=== PATIENT | female | born 1970 | race American Indian/Alaskan Native ===

== ENCOUNTER 2021-10-16 10:20 | Emergency (ER) | payer SELFPAY ==
[2021-10-16 11:13] VITALS: BP 156/83
--- NOTE | 2021-10-16 11:46 | XRay Report ---
CHEST 2 VIEWS INDICATION / CLINICAL INFORMATION: Chest Pain. COMPARISON: None available. FINDINGS: SUPPORT DEVICES: None. HEART / MEDIASTINUM: Heart size is upper limits of normal. This is grossly stable compared to prior e xam. LUNGS / PLEURA: No significant pulmonary or pleural abnormality. No pneumothorax. ADDITIONAL FINDINGS: No significant additional findings. IMPRESSION: 1. No acute findings. Signer Name: Shiv Jhaveri MD Signed: 10/16/2021 11:41 AM Workstation Name: [email or web address]
[2021-10-16] MEDS ORDERED: ALBUTEROL 2.5 MG/3 ML NEBU IH ONE (12:35)
[2021-10-16] MEDS ORDERED: predniSONE 20 MG TAB PO ONE (12:36)
[2021-10-16 12:46] LABS: Alanine Aminotransferase 8 units/L (7-56); Albumin 4.2 g/dL (3.9-5); BUN/Creatinine Ratio 14; Blood Urea Nitrogen 7 mg/dL (7-17); Hemolysis Index 6
[2021-10-16 12:51] LABS: Hematocrit 28.7 % (30.3-42.9); Mean Corpuscular Volume 56 fl (79-97); Red Blood Count 5.15 M/mm3 (3.65-5.03)
[2021-10-16 12:52] LABS: Lymphocytes % (Auto) 15.3 % (13.4-35.0); Mean Corpuscular HGB Conc 28 % (30-34); Monocytes % (Auto) 6.4 % (0.0-7.3); Platelet Count 436 K/mm3 (140-440); Red Cell Distribution Width 24.8 % (13.2-15.2)
[2021-10-16 12:53] LABS: Basophils # (Auto) 0.1 K/mm3 (0.0-0.1); Basophils % (Auto) 0.5 % (0.0-1.8); Eosinophils # (Auto) 0.2 K/mm3 (0.0-0.4); Lymphocytes # (Auto) 1.9 K/mm3 (1.2-5.4); Monocytes # (Auto) 0.8 K/mm3 (0.0-0.8)
--- NOTE | 2021-10-16 12:53 | Emergency Department Report ---
Minor Respiratory - HPI Chief Complaint: Chest Pain Stated Complaint: CHEST PAIN/HEADACHE/CONGESTION Time Seen by Provider: 10/16/21 11:12 Duration: 3 Days Pain Location: Chest Severity: mild Minor Respiratory: Yes Able to Tolerate Fluids, Yes Cough, Yes Sick Contacts, Y es Chest Pain, No Rhinorrhea, No Sore Throat, No Ear Pain, No Hemoptysis, No Shortness of Breath, No Fever Other History: Patient is a 51-year-old female that comes to the emergency room complaining of chest pain that occurs when she coughs. 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 Patient does have a history of asthma. She is on no medications for her asthma due to finances. She also has a history of hypertension, she is off her blood pressure medicines again due to finances. Patient endorses that the pain is only when she coughs. She notes that she has been wheezing. She has no fever or chills. No sputum. No shortness of breath. Patient is immunized for COVID ED Review of Systems ROS: Stated complaint: CHEST PAIN/HEADACHE/CONGESTION Other details as noted in HPI Comment: All other systems reviewed and negative ED Past Medical Hx - Past Medical History Previous Medical History?: Yes Hx Hypertension: Yes Hx Asthma: Yes Additional medical history: Anemia - Surgical History Past Surgical History?: Yes Additional Surgical History: T & A - Family History Family history: no significant - Social History Smoking Status: Never Smoker Substance Use Type: Alcohol - Medications Home Medications: Home Medications Medication Instructions Recorded Confirmed Last Taken Type Amlodipine Besylate [Norvasc] 2.5 mg PO DAILY #30 tab 08/19/16 Unknown Rx Albuterol Mdi (or & Nicu Only) 2 puff IH QID PRN #1 inhalation 10/16/21 Unknown Rx [ProAir HFA Inhaler] Albuterol Sulfate [Albuterol 0.63% 0.63 mg IH TID PRN #30 ml 10/16/21 Unknown Rx NEBS] Albuterol Sulfate [Proair 90 mcg IH QID PRN #1 aer.pow.ba 10/16/21 Unknown Rx Respiclick] Amoxicillin [Trimox CAP] 500 mg PO BID #20 capsule 10/16/21 Unknown Rx Cetirizine HCl [ZyrTEC] 10 mg PO DAILY #30 capsule 10/16/21 Unknown Rx Docusate Sodium [Colace] 100 mg PO BID #60 capsule 10/16/21 Unknown Rx Ferrous Sulfate [Iron 325 MG] 325 mg PO DAILY #30 10/16/21 Unknown Rx Fluticasone [Flonase] 1 spray NS QDAY #1 bottle 10/16/21 Unknown Rx lisinopriL [Zestril TAB] 10 mg PO QDAY #30 tablet 10/16/21 Unknown Rx methylPREDNISolone [Medrol 4MG 4 mg PO FS #1 tab.ds.pk 10/16/21 Unknown Rx DOSEPAK (21 tabs)] Minor Respiratory Exam - Exam General: Vital signs noted. No distress. Alert and acting appropriately. HEENT: Yes Moist Mucous Membranes, Yes Frontal Tenderness, Yes Maxillary Te nderness, No Pharyngeal Erythema, No Pharyngeal Exudates, No Rhinorrhea, No Conjuctival Injection Ear: Neither TM Bulge, Neither TM Erythema, Neither EAC Pain, Neither EAC Dis charge Neck: Yes Supple, No Adenopathy Lungs: Yes Good Air Exchange, No Wheezes, No Ronchi, No Stridor, No Cough, No Labored Respirations, No Retractions, No Use of Accessory Muscles, No Other Abnormal Lung Sounds Heart: Yes Regular, No Murmur Abdomen: Yes Normal Bowel Sounds, No Tenderness, No Peritoneal Signs Skin: No Rash, No Edema Neurologic: Alert and oriented, no deficits. Musculoskeletal: Unremarkable. ED Course Vital Signs 10/16/21 11:12 Temperature 97.9 F Pulse Rate 83 Respiratory 18 Rate Blood Pressure 156/83 [Right] O2 Sat by Pulse 97 Oximetry ED Medical Decision Making - Lab Data Result diagrams: 10/16/21 11:49 10/16/21 11:49 - EKG Data -: EKG Interpreted by Pa EKG shows normal: sinus rhythm Rate: normal - EKG Data When compared to previous EKG there are: no significant change Interpretation: no acute changes - Radiology Data Radiology results: report reviewed, image reviewed No acute process - Medical Decision Making Lab Results 10/16/21 10/16/21 Range/Units 11:49 11:49 WBC 12.4 H (4.5-11.0) K/mm3 RBC 5.15 H (3.65-5.03) M/mm3 Hgb 8.0 L (10.1-14.3) gm/dl Hct 28.7 L (30.3-42.9) % MCV 56 L (79-97) fl MCH 16 L (28-32) pg MCHC 28 L (30-34) % RDW 24.8 H (13.2-15.2) % Plt Count 436 (140-440) K/mm3 Lymph % (Auto) 15.3 (13.4-35.0) % [place] % (Auto) 6.4 (0.0-7.3) % Eos % (Auto) 1.7 (0.0-4.3) % Baso % (Auto) 0.5 (0.0-1.8) % Lymph # (Auto) 1.9 (1.2-5.4) K/mm3 [place] # (Auto) 0.8 (0.0-0.8) K/mm3 Eos # (Auto) 0.2 (0.0-0.4) K/mm3 Baso # (Auto) 0.1 (0.0-0.1) K/mm3 Seg Neutrophils % 76.1 H (40.0-70.0) % Seg Neutrophils # 9.5 H (1.8-7.7) K/mm3 Sodium 139 (137-145) mmol/L Potassium 4.1 (3.6-5.0) mmol/L Chloride 103.7 (98-107) mmol/L Carbon Dioxide 22 (22-30) mmol/L Anion Gap 17 mmol/L BUN 7 (7-17) mg/dL Creatinine 0.5 L (0.6-1.2) mg/dL Estimated GFR > 60 ml/min BUN/Creatinine Ratio 14 % Glucose 111 H (65-100) mg/dL Calcium 9.0 (8.4-10.2) mg/dL Total Bilirubin 0.50 (0.1-1.2) mg/dL AST 15 (5-40) units/L ALT 8 (7-56) units/L Alkaline Phosphatase 74 (35-129) units/L Troponin T < 0.010 (0.00-0.029) ng/mL Total Protein 7.9 (6.3-8.2) g/dL Albumin 4.2 (3.9-5) g/dL Albumin/Globulin Ratio 1.1 % Vital Signs 10/16/21 11:12 Temperature 97.9 F Pulse Rate 83 Respiratory 18 Rate Blood Pressure 156/83 [Right] O2 Sat by Pulse 97 Oximetry Patient given an albuterol nebulizer in the ER. Dosed with prednisone. Patient does endorse sinus pressure and yellow sinus drainage. She has no fever or chills. No sputum. White count was normal. I have encouraged the patient to give this more time, however she states every time that she does not address her sinuses probably she gets of severe sinus infection. I have given her amoxicillin. Have given her a refill for her blood pressure medicines. I have given patient a prescription for iron and Colace. She has acute on chronic anemia. I have given patient referral to PCP. I have asked her to follow-up. Patient is ambulatory, not ill nontoxic on exam in ER. Of had a long discussion with the patient regarding her lab findings. I have explained to her how they interrelate. I have given her referral to primary care. Patient being discharged home with discharge plan of care including diet, medications, activity and follow-up. She verbalizes understanding. - Differential Diagnosis URI, asthma acute exacerbation Critical care attestation.: If time is entered above; I have spent that time in minutes in the direct care of this critically ill patient, excluding procedure time. ED Disposition Clinical Impression: History of hypertension, Nonadherence to medication, Acute on chronic anemia Asthma exacerbation Qualifiers: Asthma severity: mild Asthma persistence: intermittent Qualified Code(s): J45.21 - Mild intermittent asthma with (acute) exacerbation Sinusitis Qualifiers: Sinusitis location: frontal Chronicity: acute Recurrence: recurrent Qualified Code(s): J01.11 - Acute recurrent frontal sinusitis Disposition: HOME / SELF CARE / HOMELESS Is pt being admited?: No Does the pt Need Aspirin: No Condition: Stable Instructions: Asthma, Adult Additional Instructions: Medications as ordered today Follow-up with PCP on Monday to make sure you are getting better I have given you referral below. He will see you since you have been seen in the ER. Odcq-fop-[id number] Motrin or Tylenol for pain or fever Zebg-wlk-xewtchf cough medicines, that can safely be taken with hypertension, for coughing Diet and activity as tolerated Stay well-hydrated with water Prescriptions: Albuterol Sulfate [Albuterol 0.63% NEBS] 0.63 mg IH TID PRN #30 ml PRN Reason: Wheezing Docusate Sodium [Colace] 100 mg PO BID #60 capsule Fluticasone [Flonase] 1 spray NS QDAY #1 bottle Ferrous Sulfate [Iron 325 MG] 325 mg PO DAILY #30 methylPREDNISolone [Medrol 4MG DOSEPAK (21 tabs)] 4 mg PO FS #1 tab.ds.pk Albuterol Mdi (or & Nicu Only) [ProAir HFA Inhaler] 2 puff IH QID PRN #1 inhalation PRN Reason: Shortness Of Breath Albuterol Sulfate [Proair Respiclick] 90 mcg IH QID PRN #1 aer.pow.ba PRN Reason: Wheezing Amoxicillin [Trimox CAP] 500 mg PO BID #20 capsule lisinopriL [Zestril TAB] 10 mg PO QDAY #30 tablet Cetirizine HCl [ZyrTEC] 10 mg PO DAILY #30 capsule Referrals: PRIMARY CAREMD [Primary Care Provider] - 3-5 Days LYNETTE SYKES MD [Staff Physician] - 3-5 Days Time of Disposition: 12:53
[2021-10-16 12:54] LABS: Eosinophils % (Auto) 1.7 % (0.0-4.3)
--- NOTE | 2021-10-18 13:29 | Electrocardiograph Report ---
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
== END 2021-10-16 14:16 | disposition home or self-care (01) ==
LOC: ED 10:20
DX: J45.901 Unspecified asthma with (acute) exacerbation (principal); D64.9 Anemia, unspecified; G89.29 Other chronic pain; J01.11 Acute recurrent frontal sinusitis; Z72.89 Other problems related to lifestyle; Z91.14 Patient's other noncompliance with medication regimen; Z88.2 Allergy status to sulfonamides; Z88.8 Allergy status to other drugs, medicaments and biological substances
CPT/HCPCS: 36415; 71046; 80053; 84484; 85025; 93005; 94640; 99284

== ENCOUNTER 2021-10-27 11:36 | Emergency (ER) | payer SELFPAY ==
[2021-10-27] MEDS ORDERED: cloNIDine 0.1 MG TAB PO ONE (16:06)
--- NOTE | 2021-10-27 16:09 | Emergency Department Report ---
ED General Adult HPI - General Chief complaint: Upper Respiratory Infection Stated complaint: SINUS/RIB HURT W/COUGHING/HEADACHE Time Seen by Provider: 10/27/21 15:54 Source: patient Mode of arrival: Ambulatory Limitations: No Limitations - History of Present Illness Initial comments: Patient is 52 years old female with history of hypertension and recurrent sinusitis. Patient presented to the ER complaining of right maxillary and ethmoid sinus pressure with drainage for the last few weeks. Patient also found to have a blood pressure of 200/110. Patient stated that she is taking lisinopril but she is out of her Norvasc. She denied any headache, focal weakness numbness or tingling sensation. Severity scale (0 -10): 0 - Related Data Previous Rx's Medication Instructions Recorded Last Taken Type Amlodipine Besylate [Norvasc] 2.5 mg PO DAILY #30 tab 08/19/16 Unknown Rx Albuterol Mdi (or & Nicu Only) 2 puff IH QID PRN #1 inhalation 10/16/21 Unknown Rx [ProAir HFA Inhaler] Albuterol Sulfate [Albuterol 0.63% 0.63 mg IH TID PRN #30 ml 10/16/21 Unknown Rx NEBS] Albuterol Sulfate [Proair 90 mcg IH QID PRN #1 aer.pow.ba 10/16/21 Unknown Rx Respiclick] Amoxicillin [Trimox CAP] 500 mg PO BID #20 capsule 10/16/21 Unknown Rx Cetirizine HCl [ZyrTEC] 10 mg PO DAILY #30 capsule 10/16/21 Unknown Rx Docusate Sodium [Colace] 100 mg PO BID #60 capsule 10/16/21 Unknown Rx Ferrous Sulfate [Iron 325 MG] 325 mg PO DAILY #30 10/16/21 Unknown Rx Fluticasone [Flonase] 1 spray NS QDAY #1 bottle 10/16/21 Unknown Rx lisinopriL [Zestril TAB] 10 mg PO QDAY #30 tablet 10/16/21 Unknown Rx methylPREDNISolone [Medrol 4MG 4 mg PO FS #1 tab.ds.pk 10/16/21 Unknown Rx DOSEPAK (21 tabs)] Allergies Allergy/AdvReac Type Severity Reaction Status Date / Time sulfamethoxazole Allergy Rash Verified 10/27/21 13:00 [From Bactrim] trimethoprim [From Bactrim] Allergy Rash Verified 10/27/21 13:00 ED Review of Systems ROS: Stated complaint: SINUS/RIB HURT W/COUGHING/HEADACHE Other details as noted in HPI Comment: All other systems reviewed and negative Constitutional: denies: chills, fever ENT: congestion Respiratory: cough, shortness of breath. denies: SOB with exertion Gastrointestinal: denies: abdominal pain, nausea, vomiting Musculoskeletal: denies: back pain Neurological: denies: headache, weakness, numbness, paresthesias, confusion, abnormal gait ED Past Medical Hx - Past Medical History Hx Hypertension: Yes Hx Asthma: Yes Additional medical history: Anemia - Surgical History Additional Surgical History: T & A - Social History Smoking Status: Never Smoker Substance Use Type: Alcohol - Medications Home Medications: Home Medications Medication Instructions Recorded Confirmed Last Taken Type Amlodipine Besylate [Norvasc] 2.5 mg PO DAILY #30 tab 08/19/16 Unknown Rx Albuterol Mdi (or & Nicu Only) 2 puff IH QID PRN #1 inhalation 10/16/21 Unknown Rx [ProAir HFA Inhaler] Albuterol Sulfate [Albuterol 0.63% 0.63 mg IH TID PRN #30 ml 10/16/21 Unknown Rx NEBS] Albuterol Sulfate [Proair 90 mcg IH QID PRN #1 aer.pow.ba 10/16/21 Unknown Rx Respiclick] Amoxicillin [Trimox CAP] 500 mg PO BID #20 capsule 10/16/21 Unknown Rx Cetirizine HCl [ZyrTEC] 10 mg PO DAILY #30 capsule 10/16/21 Unknown Rx Docusate Sodium [Colace] 100 mg PO BID #60 capsule 10/16/21 Unknown Rx Ferrous Sulfate [Iron 325 MG] 325 mg PO DAILY #30 10/16/21 Unknown Rx Fluticasone [Flonase] 1 spray NS QDAY #1 bottle 10/16/21 Unknown Rx lisinopriL [Zestril TAB] 10 mg PO QDAY #30 tablet 10/16/21 Unknown Rx methylPREDNISolone [Medrol 4MG 4 mg PO FS #1 tab.ds.pk 10/16/21 Unknown Rx DOSEPAK (21 tabs)] ED Physical Exam - General Limitations: No Limitations General appearance: alert, in no apparent distress - Head Head exam: Present: atraumatic, normocephalic, normal inspection - Eye Eye exam: Present: normal appearance - ENT ENT exam: Present: normal exam, normal orophraynx, mucous membranes moist - Neck Neck exam: Present: normal inspection, full ROM. Absent: tenderness, meningismus - Respiratory Respiratory exam: Present: normal lung sounds bilaterally - Cardiovascular Cardiovascular Exam: Present: regular rate, normal rhythm, normal heart sounds - GI/Abdominal GI/Abdominal exam: Present: soft, normal bowel sounds. Absent: distended, tenderness, guarding, rebound, rigid, organomegaly, mass, bruit, pulsatile mass, hernia - Extremities Exam Extremities exam: Present: normal inspection, full ROM, normal capillary refill. Absent: tenderness, pedal edema, joint swelling, calf tenderness - Back Exam Back exam: Present: normal inspection, full ROM. Absent: CVA tenderness (R), CVA tenderness (L) - Neurological Exam Neurological exam: Present: alert, oriented X3, CN II-XII intact, normal gait, reflexes normal. Absent: motor sensory deficit - Psychiatric Psychiatric exam: Present: normal mood - Skin Skin exam: Present: warm, intact, normal color ED Course Vital Signs 10/27/21 10/27/21 12:58 16:20 Temperature 98.3 F Pulse Rate 96 H 90 Respiratory 18 18 Rate Blood Pressure 200/111 145/87 [Left] O2 Sat by Pulse 100 100 Oximetry ED Medical Decision Making - Lab Data Result diagrams: 10/27/21 16:57 10/27/21 16:57 - Radiology Data Radiology results: report reviewed - Medical Decision Making Patient is 52 years old female with history of hypertension and recurrent sinusitis. Patient presented to the ER complaining of right maxillary and ethmoid sinus pressure with drainage for the last few weeks. Patient also found to have a blood pressure of 200/110. Patient stated that she is taking lisino pril but she is out of her Norvasc. She denied any headache, focal weakness numbness or tingling sensation. Patient remained stable in the ER and her blood pressure went down to 145/72 with no medication. Labs reviewed and is unremarkable except for leukocytosis most likely from recent prednisone use and sinusitis. Patient treated with amoxicillin with no significant improvement. I will start patient on erythromycin. I will refill her Norvasc and strongly advised the patient to follow-up with her primary care physician for further management and also to return to the ER if she develop any new symptoms. Critical care attestation.: If time is entered above; I have spent that time in minutes in the direct care of this critically ill patient, excluding procedure time. ED Disposition Clinical Impression: Malignant hypertension, Acute sinusitis Disposition: 01 HOME / SELF CARE / HOMELESS Is pt being admited?: No Condition: Stable Instructions: Hypertension (ED), Sinusitis, Adult, [id number], Hypertension, Adult Referrals: LYNETTE SYKES MD [Primary Care Provider] - 3-5 Days
--- NOTE | 2021-10-27 16:42 | XRay Report ---
CHEST 2 VIEWS INDICATION / CLINICAL INFORMATION: cough/chest pain. COMPARISON: 2 views of the chest from 10/16/2021. FINDINGS: SUPPORT DEVICES: None. HEART / MEDIASTINUM: Stable. LUNGS / PLEURA: No significant pulmonary abnormality. No significant pleural effusion. No pneumothora x. ADDITIONAL FINDINGS: The bones are unchanged. IMPRESSION: 1. No acute abnormality of the chest. Signer Name: Ron Little MD Signed: 10/27/2021 4:38 PM Workstation Name: [id number]
[2021-10-27 17:49] LABS: Mean Corpuscular HGB Conc 28 % (30-34); Platelet Count 451 K/mm3 (140-440); Red Blood Count 5.55 M/mm3 (3.65-5.03)
[2021-10-27 17:50] LABS: Hematocrit 32.1 % (30.3-42.9); Hemoglobin 9.1 gm/dl (10.1-14.3); Mean Corpuscular Volume 58 fl (79-97); Red Cell Distribution Width 27.5 % (13.2-15.2)
[2021-10-27 17:53] LABS: Blood Urea Nitrogen 8 mg/dL (7-17); Calcium 9.1 mg/dL (8.4-10.2); Hemolysis Index 1
[2021-10-27 17:54] LABS: BUN/Creatinine Ratio 16
[2021-10-27 18:56] VITALS: BP 124/78
[2021-10-27 19:06] LABS: Anisocytosis 2+; Hypochromasia 2+; Total Cells Counted 100
== END 2021-10-27 18:55 | disposition home or self-care (01) ==
LOC: ED 11:36
DX: I10 Essential (primary) hypertension (principal); J01.90 Acute sinusitis, unspecified; J45.909 Unspecified asthma, uncomplicated; Z72.89 Other problems related to lifestyle; Z88.2 Allergy status to sulfonamides; Z88.8 Allergy status to other drugs, medicaments and biological substances; Z79.899 Other long term (current) drug therapy
CPT/HCPCS: 36415; 71046; 80048; 85007; 85025; 99283